=== PATIENT | female | born 1965 | race Caucasian/White ===

== ENCOUNTER → 2024-03-05 06:59 | Outpatient (REF) | payer OTHER, SELFPAY | LOC: HWWDC 06:59 | PROVIDERS: ATTENDING PHYSICIAN Nurse Practitioner Adult Health | DX: Z12.31 Encounter for screening mammogram for malignant neoplasm of breast (principal) | CPT/HCPCS: 77063; 77067 ==

== ENCOUNTER → 2024-03-19 09:42 | Outpatient (REF) | payer OTHER, SELFPAY | LOC: HWRAD 09:42 | PROVIDERS: ATTENDING PHYSICIAN Nurse Practitioner Adult Health | DX: M85.80 Other specified disorders of bone density and structure, unspecified site (principal) | CPT/HCPCS: 77080 ==